=== PATIENT | male | born 2005 | race Caucasian/White ===

== ENCOUNTER 2024-09-23 10:30 | Day surgery (SDC) | payer SELFPAY ==
[2024-09-23] MEDS ORDERED: Sodium Chloride 0.9% 10 ML Syringe FLUSH PRN (10:31)
[2024-09-23] MEDS ORDERED: Sodium Chloride 0.9% 2.5 ML Syringe FLUSH PRN (10:31)
[2024-09-23 10:54] LABS: APPEARANCE,URINE CLEAR; BILIRUBIN,URINE NEGATIVE (NEGATIVE); COLOR,URINE YELLOW; GLUCOSE,URINE NEGATIVE (NEGATIVE); KETONES,URINE NEGATIVE (NEGATIVE); LEUKOCYTE ESTERASE,URINE NEGATIVE (NEGATIVE); NITRITE,URINE NEGATIVE (NEGATIVE); OCCULT BLOOD,URINE NEGATIVE (NEGATIVE); PH,URINE 6.5 (5.0-8.0); PROTEIN,URINE NEGATIVE (NEGATIVE); UROBILINOGEN,URINE 0.2 EU/dL (<2.0)
[2024-09-23] MEDS: Sodium Chloride 0.9% 1,000 ML IV ONE (10:59)
[2024-09-23 11:00] LABS: BASOPHILS ABSOLUTE AUTO 0.05 K/uL (0.00-0.20); BASOPHILS PERCENT AUTO 0.3 % (0.0-1.0); EOSINOPHILS ABSOLUTE AUTO 0.09 K/uL (0.00-0.45); EOSINOPHILS PERCENT AUTO 0.6 % (0.0-6.0); HEMATOCRIT 45.4 % (42.0-52.0); HEMOGLOBIN 16.4 g/dL (14.0-18.0); IMMATURE GRAN ABSOLUTE AUTO 0.04 K/uL (0.00-0.05); IMMATURE GRAN PERCENT AUTO 0.3 % (0.0-0.4); LYMPHOCYTES ABSOLUTE AUTO 3.33 K/uL (1.00-4.80); LYMPHOCYTES PERCENT AUTO 22.3 % (24.0-44.0); MEAN CORPUSCULAR HEMOGLOBIN 30.2 pg (28.0-32.0); MEAN CORPUSCULAR HGB CONC 36.1 g/dL (32.0-36.0); MEAN CORPUSCULAR VOLUME 83.6 fL (83.0-99.0); MEAN PLATELET VOLUME 9.2 fL (9.4-12.4); MONOCYTES ABSOLUTE AUTO 0.84 K/uL (0.00-0.80); MONOCYTES PERCENT AUTO 5.6 % (0.0-8.0); NEUTROPHILS ABSOLUTE AUTO 10.59 K/uL (1.80-7.70); NEUTROPHILS PERCENT AUTO 70.9 % (41.0-71.0); PLATELET COUNT,PLT 329 K/uL (150-400); RED BLOOD CELL COUNT 5.43 M/uL (4.52-5.90); WHITE BLOOD CELL COUNT,WBC 14.94 K/uL (3.9-11.3)
[2024-09-23] MEDS ORDERED: Iopamidol 755 MG/ML 500 ML Multipack Bottle IVPUSH STA (11:00)
[2024-09-23 11:25] LABS: A/G RATIO 1.3 (0.9-1.6); ALBUMIN 4.7 g/dL (3.4-5.0); BILIRUBIN TOTAL 0.8 mg/dL (0.2-1.0); CALCIUM 9.5 mg/dL (8.5-10.1); EST CRCL DRUG DOSING (CG) 110.5 mL/min; PROTEIN TOTAL,TP 8.3 g/dL (6.4-8.2)
[2024-09-23] MEDS: Ertapenem 1 GM in Sodium Chloride 0.9% 50 ML IV ONE (12:31)
[2024-09-23] MEDS ORDERED: Bupivacaine 0.5% 30 ML SDV ONE (14:15)
[2024-09-23] MEDS: Lactated Ringers 1,000 ML IV SCH (14:20)
[2024-09-23] MEDS ORDERED: Propofol 200 MG/20 ML SDV ONE (14:58)
[2024-09-23] MEDS ORDERED: Morphine 2 MG/ML SYRINGE IVPUSH PRN (15:00)
[2024-09-23] MEDS ORDERED: fentaNYL 50 MCG/ML SDV IVPUSH PRN (15:00)
[2024-09-23] MEDS ORDERED: Metoclopramide 10 MG/2 ML SDV IVPUSH PRN (15:00)
[2024-09-23] MEDS ORDERED: Phenylephrine HCl In 0.9% NaCl 1 MG/10 ML Syringe IVPUSH PRN (15:00)
[2024-09-23] MEDS ORDERED: Ondansetron 4 MG/2 ML SDV IVPUSH PRN ×2 (15:00→17:28)
[2024-09-23] MEDS ORDERED: Naloxone 0.4 MG/ML SDV IVPUSH PRN ×2 (15:00→17:28)
[2024-09-23] MEDS ORDERED: Albuterol 0.083% 2.5 MG/3 ML Neb Soln NEB PRN (15:00)
[2024-09-23] MEDS ORDERED: Rocuronium Bromide 50 MG/5 ML Syringe ONE (15:02)
[2024-09-23] MEDS ORDERED: Ropivacaine 0.5% 5 MG/ML 30 ML SDV ONE (15:06)
[2024-09-23] MEDS ORDERED: Dexamethasone 4 MG/ML 5 ML MDV ONE (15:56)
[2024-09-23] MEDS ORDERED: Magnesium Sulfate (4.06 MEQ/ML) 5 GM/10 ML SDV ONE (15:56)
[2024-09-23] MEDS ORDERED: Ondansetron 4 MG/2 ML SDV ONE (15:56)
[2024-09-23] MEDS ORDERED: Sugammadex Sodium 200 MG/2 ML VIAL IV ONE (16:46)
[2024-09-23] MEDS ORDERED: Ketorolac 30 MG/ML SDV ONE (16:46)
[2024-09-23] MEDS: HYDROmorphone 1 MG/ML Syringe IVPUSH PRN (18:02)
[2024-09-23] MEDS: Acetaminophen/HYDROcodone 325-5 MG Tab PO PRN (20:44)
[2024-09-23] MEDS: Acetaminophen 325 MG Tab PO PRN (22:39)
[2024-09-24] MEDS: HYDROmorphone 0.5 MG/0.5 ML Syringe IVPUSH PRN (01:42)
[2024-09-24] MEDS: Sodium Chloride 0.9% 1,000 ML IV SCH (02:37)
== END 2024-09-24 10:40 | disposition home or self-care (01) ==
LOC: MW.ED 10:30 → MW.SDS 12:32 → MW.MS 12:32 → MW.SDS 09-24 10:40
PROVIDERS: ATTEND Surgery
DX: K35.30 Acute appendicitis with localized peritonitis, without perforation or gangrene (principal); Z87.891 Personal history of nicotine dependence
CPT/HCPCS: 36415; 44970; 64488; 74177; 80053; 81003; 83690; 85025; 96361; 96365; 99285; A9270; J0665; J1100; J1171; J1335; J1885; J2704; J2795; J3475; J7030; J7120; 00840; 99284; J2405; J3490